=== PATIENT | male | born 1935 | race Caucasian/White ===

== ENCOUNTER 2021-10-23 03:07 | Observation (INO) | payer OTHER ==
[~2021-10-23] VITALS: Ht 175.3 cm; Wt 73.5 kg
--- NOTE | 2021-10-23 03:07 | NUR ---
PT JORDAN PRATT. TAKEN TO BED 11
[2021-10-23 03:10] VITALS: BP 133/70
--- NOTE | 2021-10-23 03:12 | NUR ---
Dr. Casey examining patient.
--- NOTE | 2021-10-23 03:23 | NUR ---
RECEIVED IN BED 11, BIBA WITH C/O GENERALIZED WEAKNWSS AND CONCERN THAT BS IS LOW. 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 IS AWAKE AD ALERT. ATTACHED TO CM = SR WITHOUT ECTOPY. PM : DM
[2021-10-23 03:46] LABS: BASOPHILS % (AUTO) 0.2 % (0.0-2.0); EOSINOPHILS # (AUTO) 0.2 K/uL (0-0.4); EOSINOPHILS % (AUTO) 2.4 % (0.0-4.0); HEMATOCRIT 43.8 % (36-52); HEMOGLOBIN 14.7 g/dL (12.0-18.0); LYMPHOCYTES # (AUTO) 0.5 K/uL (2.0-11.5); LYMPHOCYTES % (AUTO) 7.5 % (20.5-51.1); MEAN CORPUSCULAR HEMOGLOBIN 29 pg (27-31); MEAN CORPUSCULAR HGB CONC 34 g/dL (33-37); MEAN CORPUSCULAR VOLUME 87.6 fL (80-94); MONOCYTES # (AUTO) 0.3 K/uL (0.8-1.0); MONOCYTES % (AUTO) 3.8 % (1.7-9.3); NEUTROPHILS # (AUTO) 6.2 K/uL (1.8-7.7); NEUTROPHILS % (AUTO) 86.1 % (42.2-75.2); PLATELET COUNT (AUTO) 163 K/uL (140-450); RED BLOOD CELL COUNT(AUTO) 5.01 MIL/uL (4.20-6.10); RED CELL DISTRIBUTION WIDTH 13.7 % (11.6-13.7); WHITE BLOOD COUNT (AUTO) 7.2 K/uL (4.8-10.8)
[2021-10-23 04:14] LABS: ALBUMIN 3.7 g/dL (3.4-5.0); ANION GAP 10.1 (8-16); ASPARTATE AMINOTRANSFERASE 21 U/L (15-37); CARBON DIOXIDE 29.6 mmol/L (21-32); CHLORIDE 103 mmol/L (98-107); GLUCOSE 101 mg/dL (74-106); POTASSIUM 3.7 mmol/L (3.5-5.1); SODIUM SERUM 139 mmol/L (136-145); TOTAL BILIRUBIN 0.6 mg/dL (0.0-1.0); UREA NITROGEN, BLOOD 29 mg/dL (7-18)
--- NOTE | 2021-10-23 05:00 | NUR ---
RESTING QUIETLY AT PRESENT
[2021-10-23] MEDS ORDERED: NACL 0.9% 1,000 ML IV ONE (06:25)
[2021-10-23] MEDS ORDERED: METO25TE2 PO (06:48)
[2021-10-23] MEDS ORDERED: LISI2.5T12 PO (06:48)
--- NOTE | 2021-10-23 06:55 | NUR ---
SPOKE WITH [employer] WHO WILL SEE IF [facility] [place]VAL[place] FOR PT TO TRANSFER
--- NOTE | 2021-10-23 07:21 | NUR ---
REPORT RECEIVED FROM LESTER BORDEN, TRANSFER OF CARE AT THIS TIME, RECEIVED PT A/OX4, IV 20G IN THE LEFT AC, TRANSFUSING NSS BOLUS. RESPIRATIONS EVEN AND UNLABORED., IN BED ON MONITOR. Addendum: 10/23/21 at 0754 by MNNICOLA WRONG USERSIOBHAN RN CHARTING
[2021-10-23 07:37] LABS: APPEARANCE,URINE CLOUDY (CLEAR); BILIRUBIN,URINE NEGATIVE (NEGATIVE); BLOOD, URINE NEGATIVE (NEGATIVE); COLOR,URINE YELLOW (YELLOW); LEUKOCYTE ESTERASE ,URINE 3+ (NEGATIVE); NITRITE, URINE POSITIVE (NEGATIVE); PH,URINE 6.5 (5.0-9.0); UGLUCOSE NEGATIVE (NEGATIVE)
[2021-10-23 08:05] LABS: CALCIUM OXALATE CRYSTALS,UR None Seen /HPF (None Seen); COARSE GRANULAR CASTS,URINE None Seen /LPF (None Seen); FINE GRANULAR CASTS,URINE None Seen /LPF (None Seen); HYALINE CASTS, URINE None Seen /LPF (None Seen); OTHER CASTS, URINE None Seen /LPF (None Seen); OTHER CRYSTALS,URINE None Seen /HPF (None Seen); RBC,URINE NONE SEEN /HPF (0-5); RED BLOOD CELL CASTS,URINE None Seen /LPF (None Seen); TRICHOMONAS,URINE None Seen /HPF (None Seen); TRIPLE PHOSPHATE CRYSTAL,UR None Seen /HPF (None Seen); URIC ACID CRYSTALS,URINE None Seen /HPF (None Seen); URINE AMORPHOUS URATE None Seen /HPF (None Seen); WAXY CASTS,URINE None Seen /LPF (None Seen); WBC,URINE >25 (MANY) /HPF (0-5); YEAST,URINE None Seen /HPF (None Seen)
--- NOTE | 2021-10-23 08:31 | NUR ---
LAB AT BEDSIDE FOR CULTURE
[2021-10-23] MEDS ORDERED: cefTRIAXone 1,000 MG VIAL ONE (08:41)
[2021-10-23] MEDS ORDERED: ALPR1TAB17 PO (08:46)
--- NOTE | 2021-10-23 08:48 | NUR ---
PT TAKEN TO CT VIA TANYA
[2021-10-23] MEDS ORDERED: LEVOFLOXACIN 750 MG/D5W PREMIX 150 ML IV ONE (09:00)
[2021-10-23] MEDS ORDERED: POTASSIUM CHLORIDE 10 MEQ TABER PO PRN (09:05)
[2021-10-23] MEDS ORDERED: MAG SULF 2000 MG/WATER PREMIX 50 ML IV PRN (09:05)
[2021-10-23] MEDS ORDERED: DEXTROSE 50% 50 ML SYR IVP PRN (09:05)
[2021-10-23] MEDS ORDERED: CLOP75TA55 PO (09:17)
[2021-10-23] MEDS ORDERED: ONDA4ODT2 PO (09:17)
[2021-10-23] MEDS ORDERED: METF-1274 PO (09:18)
[2021-10-23] MEDS ORDERED: INSU100S10 SUBQ (09:18)
--- NOTE | 2021-10-23 09:22 | NUR ---
ZAKI AT BEDSIDE
--- NOTE | 2021-10-23 10:27 | NUR ---
DR TELLO AT BEDSIDE FOR EVAL
[2021-10-23] MEDS ORDERED: ATOR80TA27 PO (10:28)
--- NOTE | 2021-10-23 11:12 | NUR ---
PT OFFERED APPLE JUICE AND CRACKERS
[2021-10-23] MEDS: BLOOD GLUCOSE MONITORING 1 DEV DEV FS SCH ×3 (11:32→21:39)
[2021-10-23] MEDS ORDERED: LORazepam 2 MG/ML VIAL IM/IVP PRN (11:35)
[2021-10-23] MEDS ORDERED: ZOLPIDEM 5 MG TAB PO PRN (11:35)
[2021-10-23] MEDS ORDERED: ONDANSETRON 4 MG ODT PO SCH (11:35)
[2021-10-23] MEDS: METOPROLOL SUCCINATE 50 MG TABER PO SCH (11:35)
[2021-10-23] MEDS: NACL 0.9% 1,000 ML IV SCH ×2 (11:35→22:03)
[2021-10-23] MEDS ORDERED: ACETAMINOPHEN 325 MG TAB PO PRN (11:35)
[2021-10-23] MEDS ORDERED: DOCUSATE SODIUM 100 MG GELCAP PO PRN (11:35)
[2021-10-23] MEDS ORDERED: ONDANSETRON 4 MG/2 ML VIAL IM/IVP PRN (11:35)
[2021-10-23] MEDS ORDERED: HYDROcodone/APAP 5/325 MG 1 TAB TAB PO PRN (11:35)
[2021-10-23] MEDS ORDERED: MECLIZINE 25 MG TAB PO PRN (11:40)
--- NOTE | 2021-10-23 12:09 | NUR ---
Patient will be admitted to care of RAUDEL. Admited to TELEMETRY. Will go to room 112A. Belongings list completed. Report to MUSHTAQ BORDEN.
--- NOTE | 2021-10-23 12:11 | NUR ---
PATIENT HAS BEEN SCREENED AND CATEGORIZED MODERATE NUTRITION RISK. PATIENT WILL BE SEEN WITHIN 3-5 DAYS OF ADMISSION. / [address]
[2021-10-23 12:27] LABS: CHOL/HDL RATIO 3.3 (1-4.5); THYROID STIMULATING HORMONE 2.47 uIU/mL (0.34-3.74)
[2021-10-23 12:30] LABS: PROTHROMBIN TIME 10.6 secs (10.8-13.4)
[2021-10-23 14:36] VITALS: BP 147/81
[2021-10-23] MEDS: INSULIN LISPRO SLIDING SCALE 100 UNITS/ML VIAL SUBQ PRN (17:03)
[2021-10-23 17:59] VITALS: BP 120/61
[2021-10-23 20:00] VITALS: BP 116/71
[2021-10-23] MEDS ORDERED: ALPRAZOLAM 1 MG PO SCH (21:00)
[2021-10-23] MEDS: ALPRAZolam 0.5 MG TAB PO SCH (21:00)
[2021-10-23] MEDS ORDERED: INSULIN NPH HUMAN ISOPHANE 100 UNIT/ML VIAL SUBQ SCH (21:00)
--- NOTE | 2021-10-23 21:33 | NUR ---
PER PT THE 162 IS OK TO HIM - HE SAID HE HAD EXPERIENCE AT 160'S BS HE TOOK METROMIN TABS AT THE SAME TIME INSULIN SHOT AND HIS BS SUDDENLY DROP . HE WANTS TO TAKE THIS MEDS IF HIS BS SUGAR IS AT LEAST 180 - HE CAN'T DECIDE IF HE WANTS TO TAKE METFORMIN AND INSULIN SHOT AT THIS TIME - HE PREFERS TO RPT BS CHECK AT 10 PM THEN WHEN THE BS IS 180'S THAT IS THE TIME HE WILL TAKE THE METFORMIN AND INSULIN SHOT . - WILL CONT. TO MONITOR . Addendum: 10/23/21 at 4266 by Dione Bradshaw RN BS 162
[2021-10-23] MEDS: metFORMIN 500 MG TAB PO SCH (22:00)
--- NOTE | 2021-10-23 23:48 | NUR ---
XANAX NOT GIVEN - PT SLEEPING SOUNDLY . WILL CONT. TO MONITOR .
[2021-10-24] VITALS: BP 128/70
--- NOTE | 2021-10-24 02:00 | NUR ---
SLEEPING , ON TELE MONITOR , CALL LIGHT WITHIN REACH .
[2021-10-24 04:00] VITALS: BP 132/57
--- NOTE | 2021-10-24 04:00 | NUR ---
ROUNDS , NO S/SX OF ACUTE DISTRESS NOTED , CALL LIGHT WITHIN REACH
--- NOTE | 2021-10-24 06:00 | NUR ---
AWAKE , NO COMPLAIN MADE , ON TELE MONITOR . CALL LIGHT WITHIN REACH .
[2021-10-24] MEDS: BLOOD GLUCOSE MONITORING 1 DEV DEV FS SCH ×2 (07:07→12:22)
[2021-10-24 07:20] LABS: ANION GAP 8.3 (8-16); CARBON DIOXIDE 28.3 mmol/L (21-32); CHLORIDE 105 mmol/L (98-107); GLUCOSE 128 mg/dL (74-106); POTASSIUM 4.6 mmol/L (3.5-5.1); SODIUM SERUM 137 mmol/L (136-145); UREA NITROGEN, BLOOD 15 mg/dL (7-18)
--- NOTE | 2021-10-24 07:21 | NUR ---
RECEIVED REPORT FROM PRODUCT MANAGEMENT INTERNSHIP NURSE FOR CONTINUITY OF CARE, POC DISCUSSED. PT IS LAYING IN BED ON ROOM AIR WITH CHEST RISING AND FALLING EVEN AND UNLABORED. PT HAS A LAC 20 RUNNING NS @ 60. ALL SAFETY MEASURES IN PLACE, CALL LIGHT WITHIN REACH. WILL CONTINUE TO MONITOR.
--- NOTE | 2021-10-24 07:27 | NUR ---
UDS SPECIMEN SENT TO LAB . ENDORSED - PT - STABLE .
[2021-10-24 07:33] LABS: BASOPHILS % (AUTO) 0.6 % (0.0-2.0); EOSINOPHILS # (AUTO) 0.2 K/uL (0-0.4); EOSINOPHILS % (AUTO) 3.8 % (0.0-4.0); HEMATOCRIT 43.6 % (36-52); HEMOGLOBIN 14.7 g/dL (12.0-18.0); LYMPHOCYTES # (AUTO) 0.8 K/uL (2.0-11.5); LYMPHOCYTES % (AUTO) 16.7 % (20.5-51.1); MEAN CORPUSCULAR HEMOGLOBIN 30 pg (27-31); MEAN CORPUSCULAR HGB CONC 34 g/dL (33-37); MEAN CORPUSCULAR VOLUME 88.3 fL (80-94); MONOCYTES # (AUTO) 0.4 K/uL (0.8-1.0); MONOCYTES % (AUTO) 8.2 % (1.7-9.3); NEUTROPHILS # (AUTO) 3.3 K/uL (1.8-7.7); NEUTROPHILS % (AUTO) 70.7 % (42.2-75.2); PLATELET COUNT (AUTO) 152 K/uL (140-450); RED BLOOD CELL COUNT(AUTO) 4.94 MIL/uL (4.20-6.10); RED CELL DISTRIBUTION WIDTH 13.3 % (11.6-13.7); WHITE BLOOD COUNT (AUTO) 4.7 K/uL (4.8-10.8)
[2021-10-24 07:38] LABS: BARBITURATE, URINE NEGATIVE ng/ml (NEG <=200); BENZODIAZEPINE, URINE POSITIVE ng/mL (NEG <=200); CANNABINOID, URINE NEGATIVE ng/mL (NEG <=50); COCAINE, URINE NEGATIVE ng/mL (NEG <=300); OPIATE, URINE NEGATIVE ng/mL (NEG <=2000); PHENCYCLIDINE SCREEN,URINE NEGATIVE ng/mL (NEG <=25)
[2021-10-24 08:00] VITALS: BP 148/80
[2021-10-24] MEDS ORDERED: lisinopriL 5 MG TAB PO SCH (09:00)
[2021-10-24] MEDS ORDERED: ATORVASTATIN 80 MG TAB PO SCH (09:00)
[2021-10-24] MEDS ORDERED: LEVOFLOXACIN 750 MG/D5W PREMIX 150 ML IV SCH (09:00)
[2021-10-24] MEDS ORDERED: CLOPIDOGREL 75 MG TAB PO SCH (09:00)
[2021-10-24] MEDS: ALPRAZolam 0.5 MG TAB PO SCH ×2 (09:00→09:25)
--- NOTE | 2021-10-24 09:00 | NUR ---
ELY MEDICATION ADMINISTERED PER MD ORDER, PT TOLERATED ADMINISTRATION. XANEX NONADMIN DUE TO PT STATING HE DOES NOT WANT TO TAKE IT RIGHT NOW. EDUCATED PT ON NEXT DOSE ISN'T UNTIL 2100, PT VERBALIZED UNDERSTANDING. IV INTACT AND PATENT. ALL SAFETY MEASURES IN PLACE, CALL LIGHT WITHIN REACH. WILL CONTINUE TO MONITOR.
[2021-10-24] MEDS: metFORMIN 500 MG TAB PO SCH (09:25)
[2021-10-24] MEDS: METOPROLOL SUCCINATE 50 MG TABER PO SCH (09:26)
--- NOTE | 2021-10-24 10:53 | NUR ---
PT HAS BEEN CLEANED, AND PROVIDED WITH CLEAN GOWN AND SHEETS. FRESH WATER ALSO PROVIDED. PT IS STABLE WITH NO ACUTE S/S OF DISTRESS. ALL SAFETY MEASURES IN PLACE, CALL LIGHT WITHIN REACH. WILL CONTINUE TO MONITOR.
[2021-10-24] MEDS ORDERED: LEVO-315 PO (11:28)
[2021-10-24] MEDS ORDERED: LACT10CA PO (11:28)
--- NOTE | 2021-10-24 11:48 | NUR ---
BLOOD GLUCOSE IS 240, 4 UNITS OF INSULIN ADMINISTERED PER MD ORDER. PT TOLERATED ADMINISTRATION. ALL SAFETY MEASURES IN PLACE, CALL LIGHT WITHIN REACH. WILL CONTINUE TO MONITOR.
[2021-10-24 12:00] VITALS: BP 125/67
[2021-10-24] MEDS: INSULIN LISPRO SLIDING SCALE 100 UNITS/ML VIAL SUBQ PRN (12:23)
--- NOTE | 2021-10-24 14:01 | NUR ---
PT REPORTS FEELING LIKE HIS BLOOD SUGAR IS LOW, ASSESSED, BLOOD GLUCOSE IS 168.
--- NOTE | 2021-10-24 15:48 | NUR ---
DISCHARGE INSTRUCTIONS WAS DISCUSSED WITH THE PATIENT AND SIGNED ALL THE DISCHARGED PAPERS. ALL PATIENT'S QUESTIONS ANSWERED. IV AND ARM BAND REMOVED. ALL PERSONNEL BELONGINGS GIVEN TO THE PATIENT. PT WHEELCHAIRED OUT IN STABLE CONDITION.
--- NOTE | 2021-10-24 17:00 | NUR ---
PHYSICAL THERAPY CO-SIGN The Physical Therapy Progress Notes documented by Petroleum Analyst have been reviewed. Reviewed/Co-Signed by: Ginny Nielson Documentation Done by: SHARI BLISS PTA Addendum: 10/24/21 at 1700 by Ginny Nielson PT Amended: Links added.
--- NOTE | 2021-10-24 17:04 | NUR ---
DC PLANNING: THE PATIENT PRESENTED FROM HOME WITH C/O WEAKNESS AND HYPOGLYCEMIA. UA POSITIVE, PATIENT STARTED ON LEVAQUIN AND IVF'S, NEUROLOGY CONSULT ORDERED. CM SPOKE WITH THE PATIENT AT BEDSIDE AND CONFIRMED HIS ADDRESS AND PHONE NUMBER HE LIVES IN A GROUND FLOOR APARTMENT ALONE AND IS INDEPENDENT IN ALL ACTIVITIES. HE HAS NO FAMILY LOCALLY AND IS NOT VERY ACTIVE PREFERRING TO STAY IN HIS APARTMENT. HE HAS A FWW AND HS NOT HAD HOME HEALTH IN THE PAST. HE STATES THAT HE IS WORRIED ABOUT HIS MEALS HE PRIMARILY EATS CEREAL AND SANDWICHES BUT ADMITTED THAT HE GETS FOOD FROM MEALS ON WHEELS THAT HE THROWS OUT. HE USES [facility] TRANSPORT TO SEE HIS PMD AND TO SHOP. HIS NEIGHBOR ALSO ASSISTS HIM WITH TRANSPORT NEEDED. THE PATIENT WILL NEED ASSISTANCE WITH TRANSPORT HOME, HOME HEALTH WILL BE ORDERED WITH HIS INSURANCE PROMED. CM WILL FOLLOW.
== END 2021-10-24 15:40 | disposition home or self-care (01) ==
LOC: MED 03:07 → MTU 08:37
DX: R55 Syncope and collapse (principal); Z20.822 Contact with and (suspected) exposure to COVID-19; N39.0 Urinary tract infection, site not specified; E83.51 Hypocalcemia; I10 Essential (primary) hypertension; E11.65 Type 2 diabetes mellitus with hyperglycemia; E78.5 Hyperlipidemia, unspecified; Z88.0 Allergy status to penicillin; Z79.899 Other long term (current) drug therapy
CPT/HCPCS: 36415; 70450; 80048; 80053; 80061; 80305; 81001; 82948; 83036; 83605; 83735; 83880; 84100; 84134; 84443; 84484; 85025; 85610; 85730; 87040; 87081; 87086; 87426; 93005; 93307; 93880; 96361; 96365; 96366; 96372; 97110; 97116; 97163; 97530; 99285; C8929; G0378; J0696; J1815; J1956; J7030; Q0092

== ENCOUNTER 2022-05-31 22:36 | Emergency (ER) | payer OTHER ==
[~2022-05-31] VITALS: Ht 175.3 cm; Wt 63.5 kg
[~2022-05-31 22:36] MED LIST: ALPR1TAB17 PO; ATOR80TA27 PO; CLOP75TA55 PO; INSU100S10 SUBQ; LACT10CA PO; LEVO-481 PO; LISI2.5T12 PO; METF-1274 PO; METO25TE2 PO; ONDA4ODT2 PO
[2022-05-31 22:37] VITALS: BP 159/93
--- NOTE | 2022-05-31 22:44 | NUR ---
PT BIBA BLS ER BED 3
--- NOTE | 2022-05-31 22:50 | NUR ---
Patient resting in bed, A/Ox4, chest rise and fall symmetrical, no c/o pain or s/s of distress, patient on monitor
[2022-05-31 23:36] LABS: BASOPHILS % (AUTO) 0.5 % (0.0-2.0); EOSINOPHILS # (AUTO) 0.2 K/uL (0-0.4); EOSINOPHILS % (AUTO) 3.8 % (0.0-4.0); HEMOGLOBIN 13.6 g/dL (12.0-18.0); LYMPHOCYTES # (AUTO) 0.7 K/uL (2.0-11.5); LYMPHOCYTES % (AUTO) 12.9 % (20.5-51.1); MEAN CORPUSCULAR HEMOGLOBIN 29 pg (27-31); MEAN CORPUSCULAR HGB CONC 33 g/dL (33-37); MEAN CORPUSCULAR VOLUME 87.4 fL (80-94); MONOCYTES # (AUTO) 0.5 K/uL (0.8-1.0); MONOCYTES % (AUTO) 9.5 % (1.7-9.3); NEUTROPHILS # (AUTO) 3.7 K/uL (1.8-7.7); NEUTROPHILS % (AUTO) 73.3 % (42.2-75.2); PLATELET COUNT (AUTO) 162 K/uL (140-450); RED BLOOD CELL COUNT(AUTO) 4.69 MIL/uL (4.20-6.10); RED CELL DISTRIBUTION WIDTH 13.4 % (11.6-13.7); WHITE BLOOD COUNT (AUTO) 5.1 K/uL (4.8-10.8)
[2022-05-31 23:52] LABS: ANION GAP 9.2 (8-16); CARBON DIOXIDE 30.7 mmol/L (21-32); CHLORIDE 98 mmol/L (98-107); GLUCOSE 157 mg/dL (74-106); POTASSIUM 3.9 mmol/L (3.5-5.1); SODIUM SERUM 134 mmol/L (136-145); UREA NITROGEN, BLOOD 23 mg/dL (7-18)
--- NOTE | 2022-06-01 00:02 | NUR ---
Patient resting in bed, A/Ox4, chest rise and fall symmetrical, no c/o pain or s/s of distress, patient on monitor
--- NOTE | 2022-06-01 02:00 | NUR ---
Patient resting in bed, A/Ox4, chest rise and fall symmetrical, no c/o pain or s/s of distress, patient on monitor
--- NOTE | 2022-06-01 02:24 | NUR ---
Patient successfully and safely ambulated 25 feet without difficulty.
[2022-06-01 02:39] VITALS: BP 118/64
--- NOTE | 2022-06-01 02:42 | NUR ---
Patient discharged with v/s stable. Written and verbal after care instructions given and explained. Patient verbalized understanding. Ambulatory with steady gait. All questions addressed prior to discharge. Advised to follow up with PMD.
== END 2022-06-01 02:40 | disposition home or self-care (01) ==
LOC: MED 22:36
DX: R06.02 Shortness of breath (principal); Z20.822 Contact with and (suspected) exposure to COVID-19; E11.9 Type 2 diabetes mellitus without complications; I10 Essential (primary) hypertension; Z88.0 Allergy status to penicillin; Z79.4 Long term (current) use of insulin; Z79.899 Other long term (current) drug therapy; Z91.040 Latex allergy status
CPT/HCPCS: 36415; 71045; 80048; 84484; 85025; 87426; 87804; 99285; Q0092

== ENCOUNTER 2023-09-21 17:56 | Emergency (ER) | payer OTHER ==
[~2023-09-21] VITALS: Ht 175.3 cm; Wt 72.6 kg
[2023-09-21 18:00] VITALS: BP 130/71; PULSE 108; RESP 18; TEMP 98.3; O2SAT 97
[2023-09-21 18:09] VITALS: TEMP 98.6
[2023-09-21 18:59] LABS: BASOPHILS % (AUTO) 0.5 % (0.0-2.0); EOSINOPHILS # (AUTO) 0.3 K/uL (0-0.4); EOSINOPHILS % (AUTO) 5.8 % (0.0-4.0); HEMATOCRIT 41.5 % (36-52); HEMOGLOBIN 14.2 g/dL (12.0-18.0); LYMPHOCYTES # (AUTO) 0.8 K/uL (2.0-11.5); LYMPHOCYTES % (AUTO) 14.2 % (20.5-51.1); MEAN CORPUSCULAR HEMOGLOBIN 30 pg (27-31); MEAN CORPUSCULAR HGB CONC 34 g/dL (33-37); MEAN CORPUSCULAR VOLUME 87.2 fL (80-94); MONOCYTES # (AUTO) 0.5 K/uL (0.8-1.0); MONOCYTES % (AUTO) 9.6 % (1.7-9.3); NEUTROPHILS % (AUTO) 69.9 % (42.2-75.2); PLATELET COUNT (AUTO) 173 K/uL (140-450); RED BLOOD CELL COUNT(AUTO) 4.76 MIL/uL (4.20-6.10); RED CELL DISTRIBUTION WIDTH 13.2 % (11.6-13.7); WHITE BLOOD COUNT (AUTO) 5.7 K/uL (4.8-10.8)
[2023-09-21 19:11] LABS: ANION GAP 11.1 (8-16); CALCIUM 8.9 mg/dL (8.5-10.1); CARBON DIOXIDE 29.4 mmol/L (21-32); CHLORIDE 99 mmol/L (98-107); CREATININE 1.2 mg/dL (0.6-1.3); GLUCOSE 167 mg/dL (74-106); POTASSIUM 4.5 mmol/L (3.5-5.1); SODIUM SERUM 135 mmol/L (136-145); UREA NITROGEN, BLOOD 36 mg/dL (7-18)
[2023-09-21 19:20] LABS: ALANINE AMINOTRANSFERASE 16 U/L (12-78); ALBUMIN 3.1 g/dL (3.4-5.0); ALKALINE PHOSPHATASE 94 U/L (50-136); ASPARTATE AMINOTRANSFERASE 15 U/L (15-37); BILIRUBIN,DIRECT 0.1 mg/dL (0.0-0.3); TOTAL BILIRUBIN 0.4 mg/dL (0.0-1.0); TOTAL PROTEIN, SERUM 6.6 g/dL (6.4-8.2)
[2023-09-21 20:37] VITALS: BP 139/71; PULSE 68; RESP 18; O2SAT 96
== END 2023-09-21 21:17 | disposition home or self-care (01) ==
LOC: MED 17:56
DX: R00.2 Palpitations (principal); E11.9 Type 2 diabetes mellitus without complications; I10 Essential (primary) hypertension; Z88.0 Allergy status to penicillin; Z88.8 Allergy status to other drugs, medicaments and biological substances; Z79.4 Long term (current) use of insulin; Z79.899 Other long term (current) drug therapy
CPT/HCPCS: 36415; 71045; 80048; 80076; 84484; 85025; 93005; 99285

== ENCOUNTER 2024-02-05 07:42 | Emergency (ER) | payer OTHER ==
[~2024-02-05] VITALS: Ht 182.9 cm; Wt 81.6 kg
[~2024-02-05 07:42] MED LIST changes: +ONDA-189 PO; -ONDA4ODT2 PO
[2024-02-05 07:48] VITALS: BP 140/70; PULSE 100; RESP 18; TEMP 97.9; O2SAT 100
[2024-02-05] MEDS ORDERED: ONDANSETRON 4 MG/2 ML VIAL ONE (08:24)
[2024-02-05] MEDS: ONDANSETRON 4 MG/2 ML VIAL IVP ONE (08:32)
[2024-02-05] MEDS: NACL 0.9% 1,000 ML IV SCH (08:33)
[2024-02-05 08:48] LABS: BILIRUBIN,URINE 2+ (NEGATIVE); BLOOD, URINE 3+ (NEGATIVE); LEUKOCYTE ESTERASE ,URINE 2+ (NEGATIVE); NITRITE, URINE POSITIVE (NEGATIVE); PH,URINE 5.5 (5.0-9.0); PROTEIN,URINE 2+ (NEGATIVE); UGLUCOSE TRACE (NEGATIVE)
[2024-02-05 08:49] LABS: BASOPHILS # (AUTO) 0.1 K/uL (0.00-0.22); BASOPHILS % (AUTO) 0.6 % (0.0-2.0); EOSINOPHILS # (AUTO) 0.2 K/uL (0-0.4); EOSINOPHILS % (AUTO) 1.7 % (0.0-4.0); HEMATOCRIT 44.2 % (36-52); HEMOGLOBIN 14.6 g/dL (12.0-18.0); LYMPHOCYTES # (AUTO) 0.8 K/uL (2.0-11.5); LYMPHOCYTES % (AUTO) 6.5 % (20.5-51.1); MEAN CORPUSCULAR HEMOGLOBIN 29 pg (27-31); MEAN CORPUSCULAR HGB CONC 33 g/dL (33-37); MEAN CORPUSCULAR VOLUME 88.4 fL (80-94); MONOCYTES # (AUTO) 0.6 K/uL (0.8-1.0); MONOCYTES % (AUTO) 4.4 % (1.7-9.3); NEUTROPHILS # (AUTO) 11.1 K/uL (1.8-7.7); NEUTROPHILS % (AUTO) 86.8 % (42.2-75.2); PLATELET COUNT (AUTO) 192 K/uL (140-450); WHITE BLOOD COUNT (AUTO) 12.8 K/uL (4.8-10.8)
[2024-02-05 08:49] LABS: APPEARANCE,URINE BLOODY (CLEAR)
[2024-02-05 08:50] LABS: COLOR,URINE BLOODY (YELLOW)
[2024-02-05 09:00] LABS: CALCIUM 8.9 mg/dL (8.5-10.1); CARBON DIOXIDE 28.5 mmol/L (21-32); CHLORIDE 98 mmol/L (98-107); CREATININE 1.4 mg/dL (0.6-1.3); GLUCOSE 194 mg/dL (74-106); POTASSIUM 4.5 mmol/L (3.5-5.1); SODIUM SERUM 135 mmol/L (136-145); UREA NITROGEN, BLOOD 36 mg/dL (7-18)
[2024-02-05 09:07] LABS: ALBUMIN 3.2 g/dL (3.4-5.0); BILIRUBIN,DIRECT 0.1 mg/dL (0.0-0.3); TOTAL BILIRUBIN 0.6 mg/dL (0.0-1.0); TOTAL PROTEIN, SERUM 7.2 g/dL (6.4-8.2)
[2024-02-05] MEDS: ACETAMINOPHEN EXTRA STRENGTH 500 MG TAB PO ONE (09:38)
[2024-02-05 09:40] LABS: ICTOTEST NEGATIVE (NEGATIVE)
[2024-02-05 09:43] LABS: BACTERIA,URINE 2+ /HPF (None Seen); RBC,URINE TOO NUMEROUS TO COUN /HPF (0-5)
[2024-02-05 09:46] LABS: WBC,URINE 20-60 /HPF (0-5)
[2024-02-05 09:48] LABS: SQUAMOUS EPITHELIAL CELL,UR 0-3 (FEW) /LPF (0-3 (FEW))
[2024-02-05] MEDS: LEVOFLOXACIN 500 MG/D5W PREMIX 100 ML IV ONE (09:48)
[2024-02-05] MEDS ORDERED: LISI20TA29 PO (10:14)
[2024-02-05] MEDS ORDERED: FINA5TAB5 PO (10:14)
[2024-02-05] MEDS ORDERED: ATOR20TA40 PO (10:14)
[2024-02-05] MEDS ORDERED: APIX2.5 PO (10:14)
[2024-02-05] MEDS ORDERED: METF-352 PO (10:14)
[2024-02-05] MEDS: NACL 0.9% 1,000 ML IV ONE (10:38)
[2024-02-05] MEDS: LORazepam 2 MG/ML VIAL IVP ONE (11:28)
[2024-02-05 16:28] VITALS: BP 110/61; PULSE 78; RESP 20; TEMP 97.8; O2SAT 97
== END 2024-02-05 16:28 | disposition short-term general hospital (02) ==
LOC: MED 07:42
DX: K92.2 Gastrointestinal hemorrhage, unspecified (principal); R11.2 Nausea with vomiting, unspecified; Z20.822 Contact with and (suspected) exposure to COVID-19; E11.9 Type 2 diabetes mellitus without complications; I10 Essential (primary) hypertension; Z85.09 Personal history of malignant neoplasm of other digestive organs; Z98.890 Other specified postprocedural states; Z79.899 Other long term (current) drug therapy; Z79.01 Long term (current) use of anticoagulants; Z79.4 Long term (current) use of insulin; Z88.0 Allergy status to penicillin; Z88.8 Allergy status to other drugs, medicaments and biological substances
CPT/HCPCS: 36415; 74176; 80048; 80076; 81001; 83690; 84484; 85025; 86886; 86900; 86901; 87040; 87086; 87186; 87426; 96361; 96365; 96375; 99285; J1956; J2060; J2405; J7030